=== PATIENT | female | born 1945 | race African-American/Black ===

== ENCOUNTER → 2016-11-15 | Outpatient (CLI) | payer MEDICARE, MEDICAID | LOC: OD 09:36 | PROVIDERS: ATTEND Urology | DX: N20.0 Calculus of kidney (principal) | CPT/HCPCS: 74000 ==

== ENCOUNTER 2017-03-15 20:37 | Emergency (ER) | payer MEDICARE, MEDICAID ==
--- NOTE | 2017-03-15 23:13 | RADIOLOGY REPORT (SQ) ---
EXAM DESCRIPTION: KNEE LEFT 3 VIEWS COMPLETED DATE/TIME: 03/15/2017 10:53 pm REASON FOR STUDY: pain s/p fall COMPARISON: None. NUMBER OF VIEWS: Three views. TECHNIQUE: AP, lateral, and sunrise patella radiographic images acquired of the left knee. LIMITATIONS: None. FINDINGS: MINERALIZATION: Normal. BONES: No acute fracture or dislocation. No worrisome bone lesions. JOINT: No effusion. SOFT TISSUES: No soft tissue swelling. No radio-opaque foreign body. OTHER: No other significant finding. IMPRESSION: NEGATIVE STUDY OF THE LEFT KNEE. NO RADIOGRAPHIC EVIDENCE OF ACUTE INJURY. TECHNICAL DOCUMENTATION: JOB ID: [id number] [employer]- All Rights Reserved
--- NOTE | 2017-03-15 23:13 | RADIOLOGY REPORT (SQ) ---
EXAM DESCRIPTION: FOOT LEFT COMPLETE COMPLETED DATE/TIME: 03/15/2017 10:53 pm REASON FOR STUDY: pain s/p fall COMPARISON: None. NUMBER OF VIEWS: Three views. TECHNIQUE: AP, lateral and oblique radiographic images acquired of the left foot. LIMITATIONS: None. FINDINGS: MINERALIZATION: Normal. BONES: Possible tail avulsion. JOINTS: No effusions. SOFT TISSUES: No soft tissue swelling. No foreign body. OTHER: No other significant finding. IMPRESSION: Possible talar avulsion. TECHNICAL DOCUMENTATION: JOB ID: [id number] [employer]- All Rights Reserved
--- NOTE | 2017-03-15 23:14 | RADIOLOGY REPORT (SQ) ---
EXAM DESCRIPTION: ANKLE LEFT AP/LATERAL COMPLETED DATE/TIME: 03/15/2017 10:53 pm REASON FOR STUDY: pain s/p fall COMPARISON: None. NUMBER OF VIEWS: Two views. TECHNIQUE: AP and lateral radiographic images acquired of the left ankle. LIMITATIONS: None. FINDINGS: MINERALIZATION: Normal. BONES: Possible talar avulsion. JOINTS: No effusions. SOFT TISSUES: Marked soft tissue swelling. OTHER: No other significant finding. IMPRESSION: Possible talar avulsion. TECHNICAL DOCUMENTATION: JOB ID: [id number]- All Rights Reserved
--- NOTE | 2017-03-15 23:35 | ER Document Report ---
ED General - General Chief Complaint: Foot Injury Stated Complaint: FALL/INJURY Time Seen by Provider: 03/15/17 22:21 Mode of Arrival: Ambulatory Information source: Patient Notes: This 71-year-old female with a history of CVA, hypertension, thyroid arthritis. Patient slipped and fell today and presents with left foot and ankle pain. Patient states she has had some swelling. The head injury. TRAVEL OUTSIDE OF THE [place] IN LAST 30 DAYS: No - HPI Onset: This afternoon Onset/Duration: Sudden Quality of pain: Dull Severity: Moderate Pain Level: 2 Associated symptoms: denies: Chest pain, Fever, Shortness of breath Exacerbated by: Movement Relieved by: Denies Similar symptoms previously: No Recently seen / treated by doctor: No - Related Data Allergies/Adverse Reactions: Penicillins Allergy (Mild, Verified 12/12/13 17:59) rash Past Medical History - General Information source: Patient - Social History Smoking Status: Never Smoker Cigarette use (# per day): No Chew tobacco use (# tins/day): No Frequency of alcohol use: None Drug Abuse: None Lives with: Family Family History: Other - Rheumatoid Arthritis Patient has suicidal ideation: No Patient has homicidal ideation: No - Past Medical History Cardiac Medical History: Reports: Hx Hypertension Denies: Hx Coronary Artery Disease, Hx Heart Attack Pulmonary Medical History: Reports: Hx Asthma, Hx Pneumonia Denies: Hx Bronchitis, Hx COPD Neurological Medical History: Reports: Hx Cerebrovascular Accident - 1989, Hx Seizures - 2006 post stroke/no meds Renal/ Medical History: Denies: Hx Peritoneal Dialysis GI Medical History: Denies: Hx Hepatitis, Hx Hiatal Hernia, Hx Ulcer Musculoskeltal Medical History: Reports Hx Arthritis Infectious Medical History: Denies: Hx Hepatitis Past Surgical History: Reports: Hx Breast Surgery - lumpectomy, Hx Orthopedic Surgery - right rotator repair, Hx Tubal Ligation. Denies: Hx Hysterectomy, Hx Mastectomy - lumpectomy, Hx Open Heart Surgery, Hx Pacemaker - Immunizations Hx Diphtheria, Pertussis, Tetanus Vaccination: No Review of Systems - Review of Systems Constitutional: denies: Chills, Fever EENT: No symptoms reported Cardiovascular: No symptoms reported Respiratory: No symptoms reported Gastrointestinal: No symptoms reported Genitourinary: No symptoms reported Female Genitourinary: No symptoms reported Musculoskeletal: See HPI Skin: No symptoms reported Hematologic/Lymphatic: No symptoms reported Neurological/Psychological: No symptoms reported Physical Exam - Vital signs Vitals: Temp Pulse BP Pulse Ox 97.8 F 89 139/80 H 92 03/15/17 20:52 03/15/17 20:52 03/15/17 20:52 03/15/17 20:52 Notes: Physical exam: GENERAL: -year-old female, alert and oriented 3, no acute distress HEAD: Atraumatic, normocephalic. EYES: Pupils equal round and reactive to light, extraocular movements intact, sclera anicteric, conjunctiva are normal. ENT: TMs normal, nares patent, oropharynx clear without exudates. Moist mucous membranes. NECK: Normal range of motion, supple without lymphadenopathy or JVD. LUNGS: Breath sounds clear to auscultation bilaterally and equal. No wheezes rales or rhonchi. HEART: Regular rate and rhythm without murmurs, rubs or gallops. ABDOMEN: Soft, normoactive bowel sounds. No tenderness to palpation. No guarding, no rebound. No masses appreciated. EXTREMITIES: Does have mild swelling of the left ankle. He does have tenderness of both malleoli. Pedal pulses good does not have any tenderness over the base of the fifth metatarsal. It does not have significant tenderness over the talus. There is some tenderness over the knee joint as well. No significant effusion of the knee joint. There is full range of motion of the knee joint NEUROLOGICAL: Cranial nerves II through XII grossly intact. Normal speech, normal gait. PSYCH: Normal mood, normal affect. SKIN: Warm, Dry, normal turgor, no rashes or lesions noted. Course - Re-evaluation Re-evalutation: 03/15/17 23:31 : Despite the x-ray showing possible avulsion fracture of the talus, patient's not really tender in that area. She is tender in the malleoli. I will treated with an ankle stair, pain medicine and have her follow-up with orthopedics. Patient would not be able to tolerate crutches at this time. She does ambulate with a Rollator - Vital Signs Vital signs: Temp Pulse Resp BP Pulse Ox 97.8 F 89 139/80 H 92 03/15/17 20:52 03/15/17 20:52 03/15/17 20:52 03/15/17 20:52 - Diagnostic Test Radiology reviewed: Image reviewed, Reports reviewed - Showed possible talus avulsion fracture Discharge - Discharge Clinical Impression: Ankle strain, Possible avulsion fracture of the talus Condition: Stable Disposition: HOME, SELF-CARE Additional Instructions: You do have an ankle sprain. The x-rays also show a possible chipped bone in your foot (called an avulsion fracture) Rec: Ice to the left foot several times a day. When lying down, Keep the foot elevated Follow-up with an orthopedic doctor: I left the number for one on the chart. Clinic on Saturday and tell them the ER doctor wanted to seen this week. Return to the emergency room for worsening pain currently getting worse. The pain medicine you're taking prescribed as a narcotic. There are several important things you should know about this medicine: 1. This medicine contains Tylenol: It is important that you do not take Tylenol (or acetaminophen) while on this medicine. Tylenol is metabolized by the liver and taking too much Tylenol (acetaminophen) can lay to liver damage and even liver failure. 2. Taking narcotics for too long can lead to physical and mental dependence. Take this medicine only if really needed and in the lowest quantity to achieve pain relief. 3. Do not drink alcohol while on this medicine. Alcohol interacts with narcotics and the combination can be dangerous. 4. Do not drive or operate machinery while on this medicine. 5. Narcotics do cause constipation, so drink plenty of fluids and daily stool softeners. Prescriptions: Oxycodone HCl/Acetaminophen [Percocet 5-325 mg Tablet] 1 - 2 tab PO ASDIR PRN # 25 tablet PRN Reason: Referrals: THERESE METZ MD [Primary Care Provider] - Follow up in 3-5 days IRVIN PIZARRO MD [ACTIVE STAFF] - 03/18/17 (this is the number for the bone doctor. call saturday)
[2017-03-15 23:59] VITALS: BP 135/79
== END 2017-03-16 00:06 | disposition home or self-care (01) ==
LOC: ER 20:37
DX: S93.422A Sprain of deltoid ligament of left ankle, initial encounter (principal); W01.0XXA Fall on same level from slipping, tripping and stumbling without subsequent striking against object, initial encounter; M79.672 Pain in left foot; M25.572 Pain in left ankle and joints of left foot; I10 Essential (primary) hypertension; Z88.0 Allergy status to penicillin
CPT/HCPCS: 99283; 73600; 73630; 73562; L1902